=== PATIENT | male | born 1940 | race Caucasian/White ===

== ENCOUNTER → 2017-09-22 | Outpatient (CLI) | payer MEDICARE, OTHER ==
[2016-03-27 14:47] VITALS: BP 122/68
[~2017-09-22] MED LIST: ALBU18HF IH; ASPI-630 PO; BUME1TAB PO; CARV3.122 PO; DIGO125T PO; DOCU250C54 PO; DRON400T PO; EDOX60TA PO; FLUT1DIS IH; FLUT1DIS5 IH; FURO-68 PO; FURO-69 PO; LISI10TA2 PO; LISI2.5T PO; METO-239 PO; OXYC-323 PO; POTA20TA4 PO; POTA20TA82 PO; PRAV10TA2 PO; PRAV40TA2 PO; SPIR25TA3 PO; TIOT18CA IH
[2017-09-22 09:21] LABS: ALBUMIN 2.9 g/dL (3.4-5.0); ALBUMIN/GLOBULIN RATIO 0.6 (1.0-1.7); CALCIUM 8.6 mg/dL (8.5-10.1); CREATININE 0.9 mg/dL (0.7-1.3); GFR 81.6; POTASSIUM 3.9 mmol/L (3.5-5.1); TOTAL BILIRUBIN 0.4 mg/dL (0.2-1.0)
== END | disposition home or self-care (01) ==
LOC: LAB 07:53
PROVIDERS: ATTEND Nurse Practitioner
DX: E78.00 Pure hypercholesterolemia, unspecified (principal)
CPT/HCPCS: 36415; 80053; 80061

== ENCOUNTER → 2018-01-27 | Outpatient (CLI) | payer MEDICARE, OTHER ==
[2016-03-27 14:47] VITALS: BP 122/68
[2018-01-27 15:51] LABS: CALCIUM 8.7 mg/dL (8.5-10.1); CREATININE 0.9 mg/dL (0.7-1.3); GFR 81.6; POTASSIUM 4.2 mmol/L (3.5-5.1)
== END | disposition home or self-care (01) ==
LOC: LAB 13:45
PROVIDERS: ATTEND Internal Medicine Cardiovascular Disease
DX: I42.9 Cardiomyopathy, unspecified (principal); E87.6 Hypokalemia
CPT/HCPCS: 36415; 80048; 83880